=== PATIENT | female | born 1995 | race Caucasian/White ===

== ENCOUNTER 2016-09-22 10:50 | Emergency (ER) | payer BC | END 2016-09-22 10:53 | disposition home or self-care (01) | LOC: ER 10:50 | DX: T15.92XA Foreign body on external eye, part unspecified, left eye, initial encounter (principal); K21.9 Gastro-esophageal reflux disease without esophagitis; F32.9 Major depressive disorder, single episode, unspecified; F41.9 Anxiety disorder, unspecified; Z23 Encounter for immunization; X58.XXXA Exposure to other specified factors, initial encounter | CPT/HCPCS: 90471; 90714; 99283; A9270-GY ==